=== PATIENT | female | born 1990 | race Caucasian/White ===

== ENCOUNTER 2020-02-22 23:52 | Emergency (ER) | payer MEDICAID ==
[~2020-02-22] VITALS: Ht 167.6 cm; Wt 98.9 kg
[2020-02-23 00:08] VITALS: BP 117/71; Ht 167.6 cm; Wt 98.9 kg
== END 2020-02-23 01:45 | disposition left against medical advice (07) ==
LOC: ED 23:52
DX: Z53.21 Procedure and treatment not carried out due to patient leaving prior to being seen by health care provider (principal)